=== PATIENT | male | born 1955 ===

== ENCOUNTER 2016-10-14 10:41 | Emergency (ER) | payer OTHER ==
[2016-10-14 10:49] VITALS: BP 136/84; TEMP 97.7
[2016-10-14 11:03] LABS: BASOPHILS % (AUTO) 1 % (0-3); EOSINOPHILS % (AUTO) 7 % (0-9); HEMATOCRIT 38 % (39-53); MEAN CORPUSCULAR HGB CONC 35.2 gm/dl (32.0-36.0); MONOCYTES % (AUTO) 8.8 % (0-12); NEUTROPHILS % (AUTO) 49.1 % (37-80)
[2016-10-14 11:13] LABS: CALCIUM 8.8 mg/dl (8.5-10.1); GLOM FILT RATE 114 mL/min (>60); POTASSIUM 4.5 mMol/L (3.5-5.1); SODIUM 137 mMol/L (136-145)
[2016-10-14] MEDS ORDERED: ALBUTEROL/IPRATROPIUM 1 VIAL SOL ONE (11:33)
[2016-10-14] MEDS: ALBUTEROL/IPRATROPIUM 1 VIAL SOL INH PRN (11:37)
[2016-10-14] MEDS ORDERED: LORAZEPAM 0.5 MG TAB ONE (12:14)
[2016-10-14] MEDS: LORAZEPAM 0.5 MG TAB PO ONE (12:15)
[2016-10-14 12:30] VITALS: PULSE 78; RESP 20; O2SAT 95
== END 2016-10-14 13:26 | disposition home or self-care (01) ==
LOC: ED 10:41
DX: F41.9 Anxiety disorder, unspecified (principal); R06.02 Shortness of breath
CPT/HCPCS: 71020; 80048; 84484; 85025; 85378; 85610; 93005; 99284; J7620

== ENCOUNTER 2016-11-03 13:57 | Emergency (ER) | payer OTHER ==
[2016-11-03 15:26] VITALS: BP 162/97; PULSE 79; RESP 20; TEMP 97.7; O2SAT 97
== END 2016-11-03 14:51 | disposition home or self-care (01) ==
LOC: ED 13:57
DX: K04.7 Periapical abscess without sinus (principal)
CPT/HCPCS: 99282; 99283

== ENCOUNTER 2017-01-19 11:49 | Emergency (ER) | payer OTHER ==
[2017-01-19 12:15] VITALS: TEMP 98.2
[2017-01-19 12:32] LABS: BASOPHILS % (AUTO) 1 % (0-3); EOSINOPHILS % (AUTO) 6 % (0-9); HEMATOCRIT 34 % (39-53); MEAN CORPUSCULAR HGB CONC 34.3 gm/dl (32.0-36.0); MEAN CORPUSCULAR VOLUME 82 fL (80-100); MONOCYTES % (AUTO) 9.3 % (0-12); NEUTROPHILS % (AUTO) 61.6 % (37-80)
[2017-01-19] MEDS ORDERED: ALBUTEROL/IPRATROPIUM 1 VIAL SOL ONE (12:42)
[2017-01-19] MEDS ORDERED: ALBUTEROL/IPRATROPIUM 1 VIAL SOL INH ONE ×2 (12:42→12:44)
[2017-01-19] MEDS ORDERED: KETOROLAC TROMETHAMINE 30 MG/ML SOL IM ONE (13:05)
[2017-01-19] MEDS ORDERED: KETOROLAC TROMETHAMINE 30 MG/ML SOL ONE (13:12)
[2017-01-19 13:23] VITALS: BP 141/66; RESP 21
[2017-01-19 13:48] VITALS: PULSE 72; O2SAT 95
== END 2017-01-19 13:30 | disposition home or self-care (01) ==
LOC: ED 11:49
DX: M19.011 Primary osteoarthritis, right shoulder (principal); R06.02 Shortness of breath
CPT/HCPCS: 99284 ×4; 71020; 83880; 85025; 96372; J1885; 36415; J7620

== ENCOUNTER 2017-03-05 08:45 | Emergency (ER) | payer OTHER ==
[2017-03-05 08:59] VITALS: TEMP 99
[2017-03-05 09:53] LABS: HEMATOCRIT 39 % (39-53); MEAN CORPUSCULAR HGB CONC 34.3 gm/dl (32.0-36.0)
[2017-03-05] MEDS ORDERED: ALBUTEROL/IPRATROPIUM 1 VIAL SOL INH ONE (10:02)
[2017-03-05 10:09] LABS: ALBUMIN 3.6 gm/dl (3.4-5.0); ALT 19 IU/L (14-63); CALCIUM 9.5 mg/dl (8.5-10.1); GLOM FILT RATE 142 mL/min (>60); POTASSIUM 3.9 mMol/L (3.5-5.1); SODIUM 139 mMol/L (136-145)
[2017-03-05 10:13] LABS: MEAN CORPUSCULAR VOLUME 80 fL (80-100)
[2017-03-05 10:40] LABS: LYMPHOCYTES % (MANUAL) 45 % (10-50)
[2017-03-05 10:41] LABS: BASOPHILS % (MANUAL) 0 % (0-3); EOSINOPHILS % (MANUAL) 7 % (0-9); NORMAL RBCS PRESENT
[2017-03-05 12:22] VITALS: RESP 14
[2017-03-05 12:23] VITALS: BP 140/95; PULSE 70; O2SAT 95
== END 2017-03-05 11:49 | disposition home or self-care (01) ==
LOC: ED 08:45
DX: J44.1 Chronic obstructive pulmonary disease with (acute) exacerbation (principal)
CPT/HCPCS: 71020; 80053; 83880; 84484; 85007; 85027; 93005; 99284; 99285; J7620

== ENCOUNTER 2017-03-25 07:56 | Emergency (ER) | payer OTHER ==
[2017-03-25 08:22] LABS: BASOPHILS % (AUTO) 1 % (0-3); EOSINOPHILS % (AUTO) 3 % (0-9); HEMATOCRIT 39 % (39-53); MEAN CORPUSCULAR HGB CONC 35.5 gm/dl (32.0-36.0); MONOCYTES % (AUTO) 6.3 % (0-12); NEUTROPHILS % (AUTO) 78.4 % (37-80)
[2017-03-25 08:28] LABS: MEAN CORPUSCULAR VOLUME 79 fL (80-100)
[2017-03-25] MEDS ORDERED: AMIODARONE 50 MG/ML SOL ONE ×2 (08:29→08:33)
[2017-03-25] MEDS ORDERED: AMIODARONE 50 MG/ML SOL IVP ONE (08:30)
[2017-03-25 08:36] LABS: GLOM FILT RATE 122 mL/min (>60); POTASSIUM 3.6 mMol/L (3.5-5.1); SODIUM 135 mMol/L (136-145)
[2017-03-25] MEDS ORDERED: ASPIRIN 81 MG CHEWABLE CTB PO ONE (08:40)
[2017-03-25] MEDS ORDERED: ASPIRIN 81 MG CHEWABLE CTB ONE (08:42)
[2017-03-25] MEDS ORDERED: AMIODARONE 50 MG/ML 450 MG in DEXTROSE 250 ML 250 ML IV ONE (08:45)
[2017-03-25] MEDS ORDERED: METOPROLOL TARTRATE 5 MG/5 ML SOL IV ONE ×2 (08:56→08:57)
[2017-03-25] MEDS ORDERED: SODIUM CHLORIDE 0.9% FLUSH 10 ML SOL IV PRN (09:30)
[2017-03-25 09:43] LABS: APPEARANCE,URINE Clear; BILIRUBIN,URINE NEGATIVE (NEGATIVE); COLOR,URINE Yellow; GLUCOSE, URINE (UA) NEGATIVE (NEGATIVE); KETONES,URINE 1+ (NEGATIVE); LEUKOCYTE ESTERASE ,URINE NEGATIVE (NEGATIVE); NITRATE,URINE NEGATIVE (NEGATIVE); OCCULT BLOOD,URINE NEGATIVE (NEG-TRACE)
[2017-03-25 09:56] LABS: RBC,URINE NEGATIVE (0-3AV/HPF); WBC,URINE NEGATIVE (0-5AV/HPF)
[2017-03-25 11:48] VITALS: TEMP 102.2
[2017-03-25 11:51] VITALS: BP 166/110; PULSE 117; RESP 18; O2SAT 115
== END 2017-03-25 08:58 | disposition short-term general hospital (02) ==
LOC: ED 07:56
DX: I49.01 Ventricular fibrillation (principal); I50.9 Heart failure, unspecified
CPT/HCPCS: 99291 ×3; 81001; 83880; 84484; 85025; 93005; J0282 ×2; 80048; 96374; 96375

== ENCOUNTER 2017-04-12 18:22 | Emergency (ER) | payer OTHER ==
[2017-04-12] MEDS ORDERED: ASPIRIN 81 MG CHEWABLE CTB ONE (18:25)
[2017-04-12] MEDS ORDERED: NITROGLYCERIN 0.4 MG TAB SL ONE (18:25)
[2017-04-12] MEDS ORDERED: ASPIRIN 81 MG CHEWABLE CTB PO STA (18:26)
[2017-04-12] MEDS ORDERED: NITROGLYCERIN 0.4 MG TAB SL PRN (18:26)
[2017-04-12] MEDS: SODIUM CHLORIDE 0.9% FLUSH 10 ML SOL IV PRN ×3 (18:37→19:18)
[2017-04-12] MEDS ORDERED: MORPHINE SULFATE 10 MG/ML SOL IV ONE ×2 (18:38→19:40)
[2017-04-12] MEDS ORDERED: MORPHINE SULFATE 10 MG/ML SOL ONE ×2 (18:39→19:41)
[2017-04-12 18:48] VITALS: TEMP 98.2
[2017-04-12 19:02] LABS: HEMATOCRIT 34 % (39-53); MEAN CORPUSCULAR HGB CONC 35.9 gm/dl (32.0-36.0)
[2017-04-12 19:05] LABS: MEAN CORPUSCULAR VOLUME 80 fL (80-100)
[2017-04-12] MEDS ORDERED: ALUMINUM/MAGNESIUM 30 ML SUS ONE (19:09)
[2017-04-12] MEDS ORDERED: ALUMINUM/MAGNESIUM 30 ML SUS PO ONE (19:09)
[2017-04-12] MEDS ORDERED: LIDOCAINE HCL 2% (VISCOUS) 20 ML SOL MT ONE (19:09)
[2017-04-12] MEDS ORDERED: LIDOCAINE HCL 2% (VISCOUS) 20 ML SOL ONE (19:09)
[2017-04-12 19:12] LABS: CALCIUM 8.9 mg/dl (8.5-10.1); GLOM FILT RATE 80 mL/min (>60); POTASSIUM 4.4 mMol/L (3.5-5.1); SODIUM 135 mMol/L (136-145)
[2017-04-12] MEDS ORDERED: LORAZEPAM 2 MG/ML SOL IV ONE ×2 (19:15→20:02)
[2017-04-12] MEDS ORDERED: LORAZEPAM 2 MG/ML SOL ONE ×2 (19:16→20:03)
[2017-04-12 19:18] LABS: BASOPHILS % (MANUAL) 0 % (0-3); EOSINOPHILS % (MANUAL) 6 % (0-9); LYMPHOCYTES % (MANUAL) 33 % (10-50); NORMAL RBCS NORMAL RBCS
[2017-04-12 20:39] VITALS: BP 109/65; PULSE 62; RESP 9; O2SAT 96
== END 2017-04-12 20:35 | disposition home or self-care (01) ==
LOC: ED 18:22
DX: R07.89 Other chest pain (principal)
CPT/HCPCS: 99285 ×3; 80048; 82550; 84484; 85007; 85027; 85610; 85730; 93005; J2060 ×2; J2270 ×2; 71010; 96374; 96375; 99284

== ENCOUNTER 2017-04-16 13:33 | Emergency (ER) | payer OTHER ==
[2017-04-16] MEDS ORDERED: SODIUM CHLORIDE 0.9% FLUSH 10 ML SOL IV PRN (13:47)
[2017-04-16] MEDS: NITROGLYCERIN 0.4 MG TAB SL PRN ×2 (13:49→13:54)
[2017-04-16] MEDS ORDERED: NITROGLYCERIN 0.4 MG TAB SL ONE (13:49)
[2017-04-16 14:06] LABS: HEMATOCRIT 34 % (39-53); MEAN CORPUSCULAR HGB CONC 34.8 gm/dl (32.0-36.0)
[2017-04-16 14:09] LABS: MEAN CORPUSCULAR VOLUME 80 fL (80-100)
[2017-04-16 14:35] LABS: ALBUMIN 3.5 gm/dl (3.4-5.0); ALT 20 IU/L (14-63); CALCIUM 8.4 mg/dl (8.5-10.1); GLOM FILT RATE 86 mL/min (>60); POTASSIUM 4.2 mMol/L (3.5-5.1); SODIUM 138 mMol/L (136-145)
[2017-04-16] MEDS ORDERED: ALUMINUM/MAGNESIUM 30 ML SUS PO ONE (14:38)
[2017-04-16] MEDS ORDERED: LIDOCAINE HCL 2% (VISCOUS) 20 ML SOL MT ONE (14:38)
[2017-04-16] MEDS ORDERED: LORAZEPAM 2 MG/ML SOL IV ONE (14:39)
[2017-04-16] MEDS ORDERED: LIDOCAINE HCL 2% (VISCOUS) 20 ML SOL ONE (14:40)
[2017-04-16] MEDS ORDERED: ALUMINUM/MAGNESIUM 30 ML SUS ONE (14:40)
[2017-04-16] MEDS ORDERED: LORAZEPAM 2 MG/ML SOL ONE (14:41)
[2017-04-16 14:48] LABS: LYMPHOCYTES % (MANUAL) 41 % (10-50)
[2017-04-16 14:49] LABS: BASOPHILS % (MANUAL) 0 % (0-3); EOSINOPHILS % (MANUAL) 8 % (0-9); NORMAL RBCS PRESENT
[2017-04-16] MEDS ORDERED: SODIUM CHLORIDE 0.9% 500 ML 250 ML IV ONE (14:51)
[2017-04-16 16:28] VITALS: BP 107/59; PULSE 62; RESP 20; TEMP 97; O2SAT 96
== END 2017-04-16 16:13 | disposition home or self-care (01) ==
LOC: ED 13:33
DX: K21.9 Gastro-esophageal reflux disease without esophagitis (principal); Z86.79 Personal history of other diseases of the circulatory system
CPT/HCPCS: 99285 ×3; 80053; 82150; 83690; 84484; 85007; 85027; 85610; 85730; 93005; J2060; 71010; 96365; 96374

== ENCOUNTER 2017-04-27 18:59 | Emergency (ER) | payer OTHER ==
[2017-04-27] MEDS ORDERED: NITROGLYCERIN 0.4 MG TAB SL ONE (19:10)
[2017-04-27] MEDS: NITROGLYCERIN 0.4 MG TAB SL PRN ×3 (19:11→19:29)
[2017-04-27 19:16] VITALS: TEMP 98.6
[2017-04-27] MEDS ORDERED: SODIUM CHLORIDE 0.9% FLUSH 10 ML SOL IV PRN (19:24)
[2017-04-27 19:36] LABS: HEMATOCRIT 43 % (39-53); MEAN CORPUSCULAR VOLUME 84 fL (80-100)
[2017-04-27 19:44] LABS: CALCIUM 8.9 mg/dl (8.5-10.1); GLOM FILT RATE 106 mL/min (>60); POTASSIUM 4.3 mMol/L (3.5-5.1); SODIUM 139 mMol/L (136-145)
[2017-04-27 20:03] LABS: BASOPHILS % (MANUAL) 0 % (0-3); EOSINOPHILS % (MANUAL) 10 % (0-9); LYMPHOCYTES % (MANUAL) 29 % (10-50); NORMAL RBCS NORMAL RBCS
[2017-04-27] MEDS ORDERED: ALUMINUM/MAGNESIUM 30 ML SUS PO ONE (20:03)
[2017-04-27] MEDS ORDERED: LIDOCAINE HCL 2% (VISCOUS) 20 ML SOL MT ONE (20:03)
[2017-04-27] MEDS ORDERED: SODIUM CHLORIDE 0.9% 500 ML 500 ML IV ONE ×2 (20:04→20:40)
[2017-04-27] MEDS ORDERED: ALUMINUM/MAGNESIUM 30 ML SUS ONE (20:06)
[2017-04-27] MEDS ORDERED: LIDOCAINE HCL 2% (VISCOUS) 20 ML SOL ONE (20:06)
[2017-04-27 21:26] VITALS: BP 123/76; PULSE 62; RESP 14; O2SAT 97
== END 2017-04-27 21:50 | disposition home or self-care (01) ==
LOC: ED 18:59
DX: K21.9 Gastro-esophageal reflux disease without esophagitis (principal); R07.9 Chest pain, unspecified; F41.9 Anxiety disorder, unspecified
CPT/HCPCS: 71010; 80048; 82550; 84484; 85007; 85027; 85610; 85730; 93005; 96365; 99284; 99285

== ENCOUNTER 2017-07-07 15:58 | Emergency (ER) | payer OTHER ==
[2017-07-07 17:05] LABS: HEMATOCRIT 40 % (39-53); MEAN CORPUSCULAR HGB CONC 35.3 gm/dl (32.0-36.0); MEAN CORPUSCULAR VOLUME 83 fL (80-100)
[2017-07-07 17:17] LABS: ALBUMIN 4.2 gm/dl (3.4-5.0); ALT 23 IU/L (14-63); CALCIUM 8.8 mg/dl (8.5-10.1); GLOM FILT RATE 84 mL/min (>60); SODIUM 139 mMol/L (136-145)
[2017-07-07 17:32] LABS: LYMPHOCYTES % (MANUAL) 18 % (10-50)
[2017-07-07] MEDS ORDERED: SODIUM CHLORIDE 0.9% 1000ML 1,000 ML IV ONE (17:32)
[2017-07-07 17:33] LABS: BASOPHILS % (MANUAL) 0 % (0-3); EOSINOPHILS % (MANUAL) 4 % (0-9); NORMAL RBCS PRESENT
[2017-07-07 19:13] VITALS: TEMP 98
[2017-07-07 21:39] VITALS: PULSE 59
[2017-07-07 21:40] VITALS: BP 133/88; RESP 17; O2SAT 97
== END 2017-07-07 19:40 | disposition home or self-care (01) ==
LOC: ED 15:58
DX: R42 Dizziness and giddiness (principal); Z95.0 Presence of cardiac pacemaker
CPT/HCPCS: 36415; 80053; 83880; 84484; 85007; 85027; 93005; 99284

== ENCOUNTER 2017-07-08 18:47 | Emergency (ER) | payer OTHER ==
[2017-07-08 19:24] VITALS: TEMP 97.3
[2017-07-08] MEDS ORDERED: LORAZEPAM 0.5 MG TAB PO ONE (19:42)
[2017-07-08] MEDS ORDERED: LORAZEPAM 0.5 MG TAB ONE (19:45)
[2017-07-08 20:39] VITALS: BP 124/70; PULSE 68; RESP 18; O2SAT 99
== END 2017-07-08 20:27 | disposition home or self-care (01) ==
LOC: ED 18:47
DX: F41.9 Anxiety disorder, unspecified (principal)
CPT/HCPCS: 93005; 99282; 99283

== ENCOUNTER 2017-10-11 22:32 | Emergency (ER) | payer OTHER ==
[2017-10-11 22:48] VITALS: RESP 20; TEMP 97
[2017-10-11] MEDS ORDERED: LORAZEPAM 2 MG/ML SOL IM ONE (22:51)
[2017-10-11] MEDS ORDERED: LORAZEPAM 2 MG/ML SOL ONE (22:52)
[2017-10-11 23:50] VITALS: BP 100/66; PULSE 72; O2SAT 95
== END 2017-10-11 23:40 | disposition home or self-care (01) ==
LOC: ED 22:32
DX: F41.9 Anxiety disorder, unspecified (principal)
CPT/HCPCS: 99283; J2060

== ENCOUNTER 2018-04-18 17:06 | Emergency (ER) | payer OTHER ==
[2018-04-18 17:26] VITALS: BP 128/82; PULSE 71; RESP 22; TEMP 97.6; O2SAT 98
[2018-04-18] MEDS ORDERED: KETOROLAC TROMETHAMINE 30 MG/ML SOL IM ONE (18:22)
[2018-04-18] MEDS ORDERED: CYCLOBENZAPRINE 10 MG TAB PO ONE (18:22)
[2018-04-18] MEDS ORDERED: KETOROLAC TROMETHAMINE 30 MG/ML SOL ONE (18:27)
[2018-04-18] MEDS ORDERED: CYCLOBENZAPRINE 10 MG TAB ONE (18:27)
== END 2018-04-18 18:58 | disposition home or self-care (01) ==
LOC: ED 17:06
DX: M25.512 Pain in left shoulder (principal)
CPT/HCPCS: 73030; 96372; 99283; J1885; A9270-GY

== ENCOUNTER 2018-09-02 12:34 | Emergency (ER) | payer OTHER ==
[2018-09-02 12:52] VITALS: TEMP 97.5
[2018-09-02] MEDS ORDERED: NITROGLYCERIN 0.4 MG TAB SL PRN (12:53)
[2018-09-02] MEDS ORDERED: SODIUM CHLORIDE 0.9% FLUSH 10 ML SOL IV PRN (12:53)
[2018-09-02 13:08] LABS: BASOPHILS % (AUTO) 1 % (0-3); EOSINOPHILS % (AUTO) 7 % (0-9); HEMATOCRIT 36 % (39-53); HEMOGLOBIN 12.2 gm/dl (13.5-17.7); LYMPHOCYTES % (AUTO) 38.5 % (10-50); MEAN CORPUSCULAR HGB CONC 33.7 gm/dl (32.0-36.0); MEAN CORPUSCULAR VOLUME 86 fL (80-100); NEUTROPHILS % (AUTO) 45.6 % (37-80)
[2018-09-02 13:15] LABS: INR 1.02 (0.86-1.12)
[2018-09-02 13:23] LABS: ALBUMIN 3.5 gm/dl (3.4-5.0); ALKALINE PHOSPHATASE 92 IU/L (46-116); ALT 30 IU/L (14-63); AST 20 IU/L (15-37); BILIRUBIN,TOTAL 0.3 mg/dl (0.2-1.0); BLOOD UREA NITROGEN 20 mg/dl (7-18); CALCIUM 8.3 mg/dl (8.5-10.1); CARBON DIOXIDE 31.3 mEq/L (21-32); CHLORIDE 103 mMol/L (98-107); CREATINE KINASE 67 U/L (39-308); CREATININE 1.02 mg/dl (0.80-1.30); GLUCOSE 125 mg/dl (74-106); POTASSIUM 4.2 mMol/L (3.5-5.1); SODIUM 141 mMol/L (136-145); TOTAL PROTEIN 6.7 gm/dl (6.4-8.2); TROP I < 0.017 ng/ml (0.000-0.056)
[2018-09-02 15:25] VITALS: BP 131/73; PULSE 68; RESP 13; O2SAT 95
== END 2018-09-02 15:17 | disposition home or self-care (01) ==
LOC: ED 12:34
DX: R07.9 Chest pain, unspecified (principal)
CPT/HCPCS: 36415; 71045; 80053; 82550; 83880; 84484; 85025; 85610; 85730; 93005; 99284; 99285